=== PATIENT | female | born 2000 | race Caucasian/White ===

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

== ENCOUNTER 2019-09-14 21:33 | Inpatient (IN) ==
[2019-09-14] MEDS ORDERED: LIDOCAINE W/ SODIUM BICARB 0.5 ML SYR SUBD PRN (21:58)
[2019-09-14] MEDS ORDERED: Carboprost Inj 250 MCG/ML AMP IM PRN (21:58)
[2019-09-14] MEDS ORDERED: Misoprostol Tab 100 MCG TAB VAGINAL PRN (21:58)
[2019-09-14] MEDS ORDERED: CefOXitin Inj 2 GM in Sodium Chloride 0.9% 100 ML IV PRN (21:58)
[2019-09-14] MEDS ORDERED: METHYLERGONOVINE MALEATE 0.2 MG/1 ML VIAL IM PRN (21:58)
[2019-09-14] MEDS ORDERED: Metoclopramide Inj 10 MG/2 ML VIAL IV PRN (21:58)
[2019-09-14] MEDS ORDERED: Lidocaine 1% 10 MG/ML - 20 ML VIAL SUBCUT PRN (21:58)
[2019-09-14] MEDS ORDERED: CITRIC ACID/SODIUM CITRATE 30 ML CUP PO PRN (21:58)
[2019-09-14] MEDS ORDERED: Naloxone Inj 0.01 MG in Sodium Chloride 0.9% vial 1 ML IVP PRN (21:58)
[2019-09-14] MEDS ORDERED: TERBUTALINE SULFATE 1 MG/1 ML SDV SUBCUT PRN (21:58)
[2019-09-14] MEDS ORDERED: Zolpidem Tab 5 MG TAB PO PRN (21:58)
[2019-09-14] MEDS ORDERED: FAMOTIDINE 20 MG/2 ML VIAL IVP PRN ×2 (21:58)
[2019-09-14] MEDS ORDERED: NALOXONE 0.4 MG/1 ML VIAL IVP PRN (21:58)
[2019-09-14] MEDS ORDERED: OXYTOCIN 10 UNIT/1 ML IM PRN (21:58)
[2019-09-14] MEDS ORDERED: CALCIUM CARBONATE 500 MG (TUMS) CHEWABLE TABLET PO PRN (21:58)
[2019-09-14] MEDS ORDERED: fentaNYL Inj 100 MCG/2 ML VIAL IVP PRN (21:58)
[2019-09-14] MEDS ORDERED: Phenylephrine Inj 50 MCG in Sodium Chloride 0.9% vial 0.5 ML IVP PRN (21:58)
[2019-09-14] MEDS ORDERED: Nalbuphine Inj 20 MG/ML Ampule IVP PRN (21:58)
[2019-09-14] MEDS ORDERED: LIDOCAINE HCL 2 % 10 ML JELLY URO-JECT TOPICAL PRN (21:58)
[2019-09-14] MEDS ORDERED: MISOPROSTOL 200 MCG TABLET RECTAL PRN (21:58)
[2019-09-14] MEDS ORDERED: diphenhydrAMINE 50 MG/1 ML VIAL IVP PRN (21:58)
[2019-09-14] MEDS ORDERED: ONDANSETRON 4 MG/2 ML VIAL IVP PRN (21:58)
[2019-09-14] MEDS ORDERED: BUTORPHANOL TARTRATE 2 MG/1 ML VIAL IVP PRN (21:58)
[2019-09-14] MEDS ORDERED: Oxytocin 20 Units + LR 20 UNIT/1,000 ML BAG IV SCH (22:00)
[2019-09-14 22:53] LABS: Hematocrit [HCT] 34.1 % (37.0-47.0); MEAN CORPUSCULAR HGB CONC 32.3 g/dL (33-37); MEAN CORPUSCULAR VOLUME 78.8 FL (81-99); MEAN PLATELET VOLUME 11.5 FL (7.4-12.2); RED BLOOD COUNT 4.33 10^6/uL (4.20-5.40)
[2019-09-15] MEDS: Lactated Ringers-OB Dept 1,000 ML PRIMARY IV SCH ×3 (00:15→13:47)
[2019-09-15] MEDS ORDERED: Oxytocin 20 Units + LR 20 UNIT/1,000 ML BAG IV SCH ×2 (05:00→19:07)
[2019-09-15] MEDS ORDERED: CLOTRIMAZOLE 28.35 GM CREAM TOPICAL SCH (09:15)
[2019-09-15] MEDS ORDERED: Fent/Bupiv 2mcg/0.0625% Epid 250 ML ONE (14:36)
[2019-09-15] MEDS ORDERED: fentaNYL 2 MCG/BUPIVACAINE 0.0625%/NS 0.9% 250 ML BAG EPIDURAL ONE (14:41)
[2019-09-15] MEDS ORDERED: Phenylephrine Inj 50 MCG in Sodium Chloride 0.9% vial 0.5 ML IVP PRN (14:42)
[2019-09-15] MEDS ORDERED: Naloxone Inj 0.01 MG in Sodium Chloride 0.9% vial 1 ML IVP PRN (14:42)
[2019-09-15] MEDS ORDERED: diphenhydrAMINE 50 MG/1 ML VIAL IVP PRN ×2 (14:42→19:07)
[2019-09-15] MEDS ORDERED: Nalbuphine Inj 20 MG/ML Ampule IVP PRN ×2 (14:42→19:07)
[2019-09-15] MEDS ORDERED: NALOXONE 0.4 MG/1 ML VIAL IVP PRN (14:42)
[2019-09-15] MEDS ORDERED: BUTORPHANOL TARTRATE 2 MG/1 ML VIAL IVP PRN (14:42)
[2019-09-15] MEDS ORDERED: LIDOCAINE MPF 2% - 5 ML (20 MG/1 ML) ONE (15:31)
[2019-09-15] MEDS ORDERED: ACETAMINOPHEN 325 MG TABLET PO PRN (19:07)
[2019-09-15] MEDS ORDERED: LIDOCAINE HCL 2 % 10 ML JELLY URO-JECT TOPICAL PRN (19:07)
[2019-09-15] MEDS ORDERED: Lidocaine 1% 10 MG/ML - 20 ML VIAL INTRADERM PRN (19:07)
[2019-09-15] MEDS ORDERED: ONDANSETRON 4 MG/2 ML VIAL IVP PRN (19:07)
[2019-09-15] MEDS ORDERED: HYDROcodone-APAP 5 MG -325 MG TABLET PO PRN (19:07)
[2019-09-15] MEDS ORDERED: DIPH,PERTUSS,TET(ADACEL) VAC/PF 0.5 ML (Tdap) IM ONE (19:07)
[2019-09-15] MEDS ORDERED: LANOLIN HPA 40 GM TUBE TOPICAL PRN (19:07)
[2019-09-15] MEDS ORDERED: Ondansetron ODT Tab 4 MG TAB PO PRN (19:07)
[2019-09-15] MEDS ORDERED: diphenhydrAMINE 25 MG CAPSULE PO PRN (19:07)
[2019-09-15] MEDS: IBUPROFEN 800 MG TABLET PO PRN (20:26)
[2019-09-15] MEDS: GLYCERIN/WITCH HAZEL 1 BOX TOPICAL PRN (20:27)
[2019-09-15] MEDS: BENZOCAINE/MENTHOL SPRAY 56 GM BOTTLE TOPICAL PRN (20:27)
[2019-09-15] MEDS: CALCIUM CARBONATE 500 MG (TUMS) CHEWABLE TABLET PO PRN (21:45)
[2019-09-16] MEDS: CALCIUM CARBONATE 500 MG (TUMS) CHEWABLE TABLET PO PRN (04:30)
[2019-09-16] MEDS: IBUPROFEN 800 MG TABLET PO PRN ×2 (04:33→13:26)
[2019-09-16 05:03] LABS: Hematocrit [HCT] 33.2 % (37.0-47.0); Hemoglobin [HGB] 10.7 g/dL (12.0-16.0); MEAN CORPUSCULAR HGB CONC 32.2 g/dL (33-37); MEAN PLATELET VOLUME 11.7 FL (7.4-12.2); RED BLOOD COUNT 4.1 10^6/uL (4.20-5.40)
[2019-09-16] MEDS ORDERED: Prenatal Multivitamin Tab 1 TAB TAB PO SCH (09:00)
[2019-09-16] MEDS ORDERED: DOCUSATE 100 MG CAPSULE PO SCH (09:00)
[2019-09-16 13:27] VITALS: TEMP 98.6
[2019-09-16 13:56] VITALS: BP 111/70; RESP 18; O2SAT 99
[2019-09-16] MEDS: GLYCERIN/WITCH HAZEL 1 BOX TOPICAL PRN (16:30)
[2019-09-16] MEDS: BENZOCAINE/MENTHOL SPRAY 56 GM BOTTLE TOPICAL PRN (16:30)
== END 2019-09-16 17:43 | disposition home or self-care (01) | DRG 807 ==
LOC: OBIP 21:33
PROVIDERS: ADMIT Family Medicine; ATTEND Family Medicine